=== PATIENT | male | born 1955 | race Caucasian/White ===

== ENCOUNTER 2022-01-12 09:31 | Outpatient (CLI) | payer BC | END 2022-01-12 09:32 | disposition home or self-care (01) | LOC: ULT 09:31 | PROVIDERS: ATTEND Family Medicine | DX: R10.13 Epigastric pain (principal); I77.811 Abdominal aortic ectasia | CPT/HCPCS: 76700 ==

== ENCOUNTER 2022-02-15 09:36 | Outpatient (CLI) | payer BC | END 2022-02-15 09:37 | disposition home or self-care (01) | LOC: BICCT 09:36 | PROVIDERS: ATTEND Internal Medicine Gastroenterology | DX: R10.13 Epigastric pain (principal); R10.33 Periumbilical pain; I71.4 Abdominal aortic aneurysm, without rupture | CPT/HCPCS: 74177; 82565 ==